=== PATIENT | female | born 1945 | race Caucasian/White ===

== ENCOUNTER → 2016-09-04 | Day surgery (SDC) | payer MEDICARE ==
[~2016-09-04] MED LIST: ASPIRIN CHILDRE81 M1 PO; ATORVASTATIN 8080 MG PO; CLONIDINE0.1 M1 PO; ISOSORBIDE MONO30 MG PO; LEVAQUIN500 MG PO; LISINOP/HCTZ TAB 20- PO; METOPROLOL25 MG PO; NITROGLYCERIN0.4 MG SL; NOMEDS; OMEPRAZOLE20 MG PO; PLAVIX 75MG TAB75 MG PO; ZESTORETIC 12.51 TA1 PO; ZOFRAN ODT4 MG PO
[2016-09-04 08:18] LABS: LYMPH # 2.3 K/mm3 (0.7-4.5); LYMPH % 37.9 % (10-50.0)
[2016-09-04 08:23] LABS: BUN 21 mg/dL (7-18); GFR (ESTIMATED) 49 ML/MIN (59-)
[2016-09-04 08:25] LABS: HEMOGLOBIN 13.4 g/dL (12.2-16.2)
--- NOTE | 2016-09-04 12:27 | RADIOLOGY REPORT PS360 ---
CARDIAC CATHETERIZATION DATE OF CATHETERIZATION:09/04/2016 9:35 AM PROCEDURES: PROCEDURE: 1. Left heart catheterization 2. Left ventriculogram 3. Selective coronary angiogram 4. Catheter placement in the left vertebral artery 5. Left vertebral artery angiogram 6. Catheter placement in the left carotid artery 7. Left carotid artery angiogram 8. Left internal carotid artery intracerebral angiogram 9. Catheter placement in the right vertebral artery 10. Right vertebral artery angiogram 11. Catheter placement in the right carotid artery 12. Right carotid artery angiogram 13. Right internal carotid artery intracerebral antegrade 14. Catheter placement in the abdominal aorta 15. Abdominal aortography 16. Repositioning of the catheter in the abdominal aorta 17. Bilateral iliofemoral runoff INDICATION: 1. Severe carotid artery stenosis 2. Abnormal carotid ultrasound 3. Angina pectoris 4. Abnormal Myoview 5. Known coronary artery disease 6. Claudication Remi class III 7. Abnormal TIFFANIE Known peripheral artery disease Informed consent was obtained prior to the procedure. COMPLICATIONS: None ESTIMATED BLOOD LOSS: Blood loss less than 10 cc. TECHNIQUE: 1% lidocaine used to anesthetize the left femoral groin. The left femoral artery was accessed via the Seldinger technique. A 4-Greenlandic sheath was placed in the right femoral artery. The JL-4 and JR-4 catheter was also used to perform left heart catheterization selective coronary angiogram and left ventriculogram. A mini exchange technique was performed due to dense atheromatous debris in the abdominal aorta. The JR4 catheter was used to selectively intubate each carotid artery as well as each vertebral artery and perform intracerebral angiography. At the end of the diagnostic heart and carotid angiogram a pigtail catheter was placed in the abdominal aorta and abdominal aortography was performed. The catheter was then repositioned and bilateral iliofemoral runoff was performed. At the end of the procedure the pigtail catheter was removed over the wire patient was transferred to the postop holding area in stable condition for sheath removal ANGIOGRAPHIC RESULTS: The left main artery is normal The left anterior descending artery has proximal 30% stenosis followed by a mid vessel stent which is widely patent free of in-stent restenosis. The circumflex artery is nondominant yet still gives rise to a large obtuse marginal artery. The vessel has an eccentric proximal 50% stenosis and a mid vessel 30% stenosis along a tortuous bend The right coronary artery is a large dominant vessel and has moderate atheromatous plaque in the proximal segment with 40% stenoses proximally and in the mid segment. The distal segment has a long calcified eccentric rim which creates a 30% intraluminal compression. The PDA and posterior lateral ventricular branch are widely patent with 30% diffuse stenosis The ROMO ventriculogram reveals mild left ventricular dilatation estimated ejection fraction 45% Left ventricular end-diastolic pressure is 10 mmHg The left vertebral artery is physiologically occluded in the proximal segment and anatomically occluded in its mid to distal segment with no can indication into the basilar artery. The vessel is small and atretic The right vertebral artery is a massively large dominant vessel and has mild 10-20% nonflow limiting stenoses The right common carotid artery is normal in bifurcates into the internal carotid artery. The right external iliac artery has a string sign subtotally occluded. The right internal carotid artery has an ostial 70% is nonflow limiting stenosis. Intracerebral vasculature is free of aneurysmal dilatation or significant atheromatous plaque The left common carotid artery has mild nonflow limiting atheromatous plaque with proximal 40-50% nonflow limiting stenoses. The intracerebral vasculature is free of aneurysmal dilatation or significant atheromatous plaque The suprarenal abdominal aorta is normal. The left renal artery is patent however diagnostic angiography was not accurate enough to identify stenosis. The right renal artery was surgically removed with vascular clipping's. The infrarenal abdominal aorta has stents eccentric calcification creating a 50% stenosis with small infrarenal abdominal aneurysms identified The bilateral common iliac arteries are calcified 20% while the external iliac arteries are patent. The right external iliac artery has a tortuous 50% stenosis which is most likely nonflow limiting and then branches into the right common femoral artery. The right superficial femoral artery is occluded approximately 1 cm after a little proximal knob is identified. The profunda femoris is patent and then collateralizes into the popliteal artery right at the distal femur. The popliteal artery is a smaller caliber vessel and does branch into the peroneal artery and the posterior tibialis artery. The anterior tibialis artery appears to be occluded proximally. There is 2 vessel runoff into the ankle with small vessels from the peroneal and the posterior tibialis artery The left external iliac artery has mild luminal irregularities. The left internal iliac artery is identified with moderate ostial plaque while the right internal iliac artery is ostially occluded. The left common femoral artery has mild atheromatous plaque] into the profunda femoris and a long superficial femoral artery which has proximal 50% followed by a mid vessel 40% stenoses with diffuse atheromatous plaque throughout entire course.] At Fredy's canal the popliteal artery has 30% stenoses and then opened into a relatively large vessel. Distally the vessel branches into the posterior tibialis artery and the peroneal artery both which are patent but small caliber while the anterior tibialis artery is proximally occluded. There is 2 vessel runoff to the foot on the left side IMPRESSION: 1. Coronary artery disease as described above 2. Mild left ventricular dilatation with slightly reduced ejection fraction 3. Normal left ventricular end-diastolic pressure 4. Occluded left vertebral artery 5. Widely patent right vertebral artery 6. Moderate to severe right internal carotid artery disease as described above 7. Moderate left internal carotid artery stenosis as described above 8. Surgically removed right kidney 9. Dense eccentric calcification in the infrarenal abdominal aorta with small aneurysmal dilatation 10. 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 2 vessel runoff below the knees bilaterally PLAN: 1. Medical management for coronary disease 2. Medical management for carotid disease 3. Medical management for aneurysms and peripheral artery disease 4. Unless patient has limb threatening ischemia I would not consider opening the right SFA. This would only be performed in the event patient was facing an amputation 5. Tobacco cessation 6. LDL less than 70 7. Chronic dual antiplatelet therapy with aspirin and Plavix
[2016-09-04 14:21] VITALS: BP 143/77
== END ==
LOC: CATHLAB 07:43
PROVIDERS: Internal Medicine
PROC: B2111ZZ Fluoroscopy of Multiple Coronary Arteries using Low Osmolar Contrast (ICD-10-PCS; 2016-09-04)
PROC: B2151ZZ Fluoroscopy of Left Heart using Low Osmolar Contrast (ICD-10-PCS; 2016-09-04)
PROC: B3181ZZ Fluoroscopy of Bilateral Internal Carotid Arteries using Low Osmolar Contrast (ICD-10-PCS; 2016-09-04)
PROC: B31G1ZZ Fluoroscopy of Bilateral Vertebral Arteries using Low Osmolar Contrast (ICD-10-PCS; 2016-09-04)
PROC: B41D1ZZ Fluoroscopy of Aorta and Bilateral Lower Extremity Arteries using Low Osmolar Contrast (ICD-10-PCS; 2016-09-04)
PROC: 4A023N7 Measurement of Cardiac Sampling and Pressure, Left Heart, Percutaneous Approach (ICD-10-PCS; principal; 2016-09-04 09:45)
DX: I25.119 Atherosclerotic heart disease of native coronary artery with unspecified angina pectoris (principal); R94.39 Abnormal result of other cardiovascular function study; I65.23 Occlusion and stenosis of bilateral carotid arteries; I73.9 Peripheral vascular disease, unspecified; I77.1 Stricture of artery
CPT/HCPCS: C1725; C1769; J1644; Q9966; Q9967